=== PATIENT | male | born 1990 | race Caucasian/White ===

== ENCOUNTER 2019-02-13 20:44 | Emergency (ER) | payer SELFPAY ==
[~2019-02-13] VITALS: Ht 167.6 cm; Wt 72.6 kg
[2019-02-13 20:45] VITALS: BP 136/80
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
[2019-02-13 21:03] VITALS: BP 136/80
--- NOTE | 2019-02-13 21:03 | NUR ---
Patient discharged with v/s stable. Written and verbal after care instructions given and explained. Patient verbalized understanding. Ambulatory with in custody WITH [facility]. All questions addressed prior to discharge. Advised to follow up with PMD.
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
== END 2019-02-13 21:03 ==
LOC: MED 20:44
DX: Z02.89 Encounter for other administrative examinations (principal); V89.2XXA Person injured in unspecified motor-vehicle accident, traffic, initial encounter; Y93.89 Activity, other specified; Y92.89 Other specified places as the place of occurrence of the external cause; Y99.8 Other external cause status
CPT/HCPCS: 99283